=== PATIENT | female | born 1955 | race Caucasian/White ===

== ENCOUNTER 2018-05-05 06:18 | Day surgery (SDC) | payer BC ==
[2018-05-05] MEDS ORDERED: LIDOCAINE 2% (SDV) 5 ML INJ (08:19)
[2018-05-05] MEDS ORDERED: PROPOFOL 40 ML (08:19)
== END 2018-05-05 16:31 | disposition home or self-care (01) ==
LOC: GIL 06:18
DX: Z12.11 Encounter for screening for malignant neoplasm of colon (principal); K64.8 Other hemorrhoids; D12.2 Benign neoplasm of ascending colon; D12.5 Benign neoplasm of sigmoid colon; I10 Essential (primary) hypertension; E11.9 Type 2 diabetes mellitus without complications; F32.9 Major depressive disorder, single episode, unspecified; E66.9 Obesity, unspecified; Z68.34 Body mass index [BMI] 34.0-34.9, adult
CPT/HCPCS: 45384; 82962; 88305

== ENCOUNTER 2018-07-12 12:07 | Emergency (ER) | payer BC ==
[2018-07-12] MEDS: TRIMETHOPRIM/SULFAMETHOX (DS) TAB PO (14:19)
[2018-07-12] MEDS: AMOXICILLIN 500 MG CAP PO (14:25)
== END 2018-07-12 14:43 | disposition home or self-care (01) ==
LOC: FTE 12:07
DX: H04.301 Unspecified dacryocystitis of right lacrimal passage (principal); I10 Essential (primary) hypertension; Z79.4 Long term (current) use of insulin; Z87.891 Personal history of nicotine dependence
CPT/HCPCS: 99283